=== PATIENT | male | born 1945 | race Caucasian/White ===

== ENCOUNTER 2018-11-18 06:35 | Observation (INO) | payer BC ==
--- NOTE | 2018-11-12 22:17 | HP ---
CC: Dr. 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 Dr. Mullen has had progressive obstructive voiding symptoms with nocturia about 3 times, day frequency about every 2 hours with hesitancy, slow stream intermittency, and feeling of incomplete bladder emptying. He presented to my office about 2-1/2 months ago with a new onset of episodes of urinary incontinence at night. There was no associated hematuria or symptoms of infection. He was evaluated in the office and was found to have a large postvoid residual of about 500 cc. His rectal examination at that time showed an enlarged, but non-suspicious prostate and his PSA was moderately elevated at 5.2. He had a straight catheterization done and he had a residual of 800 cc. Patient was given the options of Clifford catheter drainage or going on intermittent self- catheterization. He chose the option of self- catheterization and he was started on tamsulosin and on finasteride. He has been performing self-cath about 4 times a day and typically gets between 300 and 400 cc residual. He has not been able to void spontaneously. He had a cystoscopy, which showed a large obstructing prostate. Urodynamic studies showed a high voiding detrusor pressure in excess of 100 cm of water, making him a very good candidate for TURP. With the persistent retention and the failure of medical treatment, the patient is admitted for transurethral resection of the prostate. PAST MEDICAL HISTORY AND SYSTEM REVIEW: He has had an inferior NC in 2004 and had a stent placement. He is followed by Dr. Stevenson. I am including the preoperative cardiology consultation and medical clearance note by Dr. Stevenson dated 11/08/18. At this evaluation, the patient had an echocardiogram and a stress nuclear test and they were both normal showing good cardiac function. He has bradycardia, asymptomatic. Dr. Stevenson cleared him up for the TURP, but did not want him to stop the Baby Aspirin.. MEDICATIONS: The patient is maintained on: 1. Lipitor 40 mg daily. 2. Amlodipine 5 mg daily. 3. Diazepam 10 mg twice a day as needed for anxiety. 4. Altace 10 mg twice a day. 5. Toprol XL 200 mg daily. 6. One baby aspirin per day. ALLERGIES: The patient denies any allergies to medications. FAMILY HISTORY: Negative family history for prostate carcinoma. SOCIAL HISTORY: He is a nonsmoker. no drug use. PHYSICAL EXAMINATION GENERAL: Moderately overweight; otherwise, pleasant and healthy-looking white male. VITAL SIGNS: Blood pressure 130/80, pulse of 50. LUNGS: Clear. HEART: Regular and rhythmic. No murmurs. ABDOMEN: Soft. No masses, no tenderness, and no CVA tenderness. EXTERNAL GENITALIA: Normal. RECTAL: Exam shows a large, but non-suspicious prostate. IMPRESSION: Urinary retention with failure of medical treatment, on intermittent self-catheterization. Coronary artery disease, stable with good cardiac function and bradycardia, with cardiac clearance for the above procedure. PLAN: Is for transurethral resection of the prostate. I discussed the operation in detail with the patient and some of the potential complications including infection, hematuria, small incidence of urinary incontinence. Considering the large prostate size, it is possible that the patient might require a staged TURP if the complete resection cannot be performed in one setting. All his questions were answered. [id number]/[facility] #: [id number] ALDO
[~2018-11-18 06:35] MED LIST: Buffered Lidocaine 1% SYRIN* 1 ML/SYRINGE INTRADERM ONE; Dexamethasone TAB* 4 MG PO ONE; DiMENhydriNATE IV* 50 MG/ML VIAL IV PUSH PRN; Famotidine IV* 10 MG/ML 2 ML (20 mg) IV ONE; Lactated Ringers 1000 ML Bag* 1,000 ML IV SCH; Morphine 4 MG/ML VIAL (1 ml) 4 MG/ML VIAL IV PRN; Naloxone* 0.4 MG/ML 1 ML VIAL IV PRN; Ondansetron INJ* 2 MG/ML VIAL ONE; Ondansetron ODT TAB* 4 MG PO ONE; PROCHLORPERAZINE INJ 5 MG/ML 2 ML VIAL IV PRN; fentaNYL* 50 MCG/ML 2 ML VIAL (100 MCG VIAL) IV PRN; oxyCODONE/Acetamin 5/325 MG* TAB PO PRN
[2018-11-18] MEDS ORDERED: Ondansetron ODT TAB* 4 MG ONE (07:02)
[2018-11-18] MEDS ORDERED: Famotidine IV* 10 MG/ML 2 ML (20 mg) ONE (07:02)
[2018-11-18] MEDS ORDERED: cefTRIAXone(*) 2 GM ADDV.VIAL IVPB ONE (07:02)
[2018-11-18] MEDS ORDERED: Dexamethasone TAB* 4 MG ONE (07:02)
[2018-11-18] MEDS ORDERED: KETAMINE HCL* 50 MG/ML 10 ML VIAL ONE (08:28)
[2018-11-18] MEDS ORDERED: fentaNYL* 50 MCG/ML 2 ML VIAL (100 MCG VIAL) ONE (08:28)
[2018-11-18] MEDS ORDERED: Midazolam* 1 MG/ML 5 ML VIAL (5 MG) ONE (08:28)
[2018-11-18] MEDS ORDERED: Midazolam* 1 MG/ML 2 ML VIAL (2 MG) ONE (10:12)
[2018-11-18] MEDS ORDERED: Lidocaine 2% PF * 5 ML VIAL ONE (11:14)
[2018-11-18] MEDS ORDERED: Propofol* 500 MG/50 ML BTL ONE (11:14)
[2018-11-18] MEDS ORDERED: Zolpidem TAB* 5 MG PO PRN (12:38)
[2018-11-18] MEDS ORDERED: Diazepam TAB(*) 5 MG PO PRN (12:41)
[2018-11-18] MEDS: Lactated Ringers 1000 ML Bag* 1,000 ML IV SCH ×2 (13:02→19:16)
[2018-11-18] MEDS: Lidocaine 2% JELLY* 6 ML JELLY TOPICAL PRN ×2 (15:00→19:15)
[2018-11-18] MEDS: Oxybutynin TAB* 5 MG PO PRN ×2 (15:01→21:04)
[2018-11-18] MEDS: oxyCODONE/Acetamin 5/325 MG* TAB PO PRN ×2 (16:02→20:00)
[2018-11-18] MEDS: TACROLIMUS 0.1% TOPICAL SCH (19:15)
[2018-11-18] MEDS: Ramipril CAP* 10 MG PO SCH (20:01)
[2018-11-18] MEDS ORDERED: Metoprolol Succinate XL TAB* 100 MG PO SCH (21:00)
[2018-11-18] MEDS ORDERED: Tamsulosin CAP* 0.4 MG PO SCH (21:00)
[2018-11-18] MEDS ORDERED: amLODIPine TAB* 5 MG PO SCH (21:00)
[2018-11-18] MEDS ORDERED: Atorvastatin* 40 MG TAB PO SCH (21:00)
[2018-11-19] MEDS: oxyCODONE/Acetamin 5/325 MG* TAB PO PRN ×2 (00:36→04:16)
[2018-11-19] MEDS: Lactated Ringers 1000 ML Bag* 1,000 ML IV SCH (01:51)
--- NOTE | 2018-11-19 02:55 | OP ---
CC: Dr. Chen * DATE OF OPERATION: 11/18/18 - ROOM #334 DATE OF : 41 SURGEON: Massimo Hargrove MD ANESTHESIOLOGIST: Dr. Giovani Rios. ANESTHESIA: Spinal. PRE-OP DIAGNOSES: 1. Urinary retention. 2. Benign prostatic hyperplasia. POST-OP DIAGNOSES: 1. Urinary retention. 2. Benign prostatic hyperplasia. OPERATIVE PROCEDURE: 1. Cystoscopy. 2. Transurethral resection of the prostate. 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 Rectal exam showed a large prostate. He was started on intermittent self-catheterization and was placed on tamsulosin and on finasteride. Cystoscopy showed a large obstructing prostate with heavy bladder trabeculations. Urodynamic studies showed high voiding detrusor pressure making him a very good candidate for TURP. Because of the persistent retention and the failure of medical treatment, TURP was advised and accepted. 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 The prostatic urethra measured 3.5 cm in length and there was significant degree of obstruction by trilobar hyperplasia of the prostate. Examination of the bladder showed diffuse and heavy bladder trabeculations. There were small cellules but no diverticula. The ureteral orifices looked normal. No calculi and no suspicious lesions were seen. The prostate adenoma was moderately vascular. DESCRIPTION OF PROCEDURE: After successful spinal anesthesia, the patient was placed in the lithotomy position and was prepped and draped for a cystoscopy. Cystoscopy was performed. The findings in the prostatic urethra and in the bladder were noted. The resectoscope was then introduced inside the bladder. Mannitol sorbitol solution was used for irrigation and the inflow and outflow were adjusted to avoid overdistention of the bladder. The median lobe and the protruding portions of the lateral lobes were resected until the identification of the bladder neck muscle fibers. The median lobe was then resected allowing the visualization of the bladder neck. The resectoscope was then positioned in the mid prostatic urethra and that the adenomatous obstructing tissue was resected circumferentially. The resectoscope was then positioned at the level of the veru. The left lobe was then resected started at 5 o'clock and proceeding anteriorly. The right lobe was resected next. The anterior and the apical tissues were resected last. The limits of the resection were the bladder neck proximally, the veru distally and the capsule circumferentially. The bleeders were electrocoagulated and controlled. At the completion of the resection, the prostatic urethra was wide open. There were no deep cuts into the capsule and no open sinuses. The external sphincter, the veru, the capsule, the bladder neck and the ureteral orifices and the bladder wall were all intact. After evacuating all the prostate chips and making sure there was very good hemostasis, the resectoscope was removed and a size 22-Upper Sorbian Clifford catheter was passed inside the bladder and the balloon inflated with 40 cc of water. Catheter was placed under gentle traction and taped to the right side of the patient. Irrigations yielded clear returns. The patient tolerated the procedure well and left the operating room in good condition. The blood loss was estimated at less than 75 cc. The specimen was prostate chips. The inflow and outflow irrigation were all accounted for indicating no absorption. [id number]/[facility] #: [id number] ALDO
[2018-11-19] MEDS: Oxybutynin TAB* 5 MG PO PRN ×2 (03:31→09:32)
[2018-11-19] MEDS ORDERED: cefTRIAXone(*) 1 GM in NS 0.9% 50 ML* 50 ML IVPB ONE (06:30)
[2018-11-19] MEDS ORDERED: Finasteride TAB* 5 MG PO SCH (09:00)
[2018-11-19 09:11] VITALS: BP 145/74
[2018-11-19] MEDS: Ramipril CAP* 10 MG PO SCH (09:32)
[2018-11-19] MEDS: TACROLIMUS 0.1% TOPICAL SCH (09:33)
--- NOTE | 2018-11-19 12:35 | DS ---
CC: Dr. Chen * DISCHARGE SUMMARY: DATE OF ADMISSION: 11/18/18 DATE OF DISCHARGE: 11/19/18 FINAL DIAGNOSES: 1. Urinary retention. 2. Benign prostatic hyperplasia. 3. History of coronary artery disease. OPERATION: Transurethral resection of the prostate on 11/18/18. 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 He was found to have a large postvoid residual of about 700 cc. There was no associated hydronephrosis or decreased renal function. He was placed on intermittent self-catheterizations and was started on tamsulosin and on finasteride. He continued to have the retention requiring self- catheterization 3 to 4 times per day. Cystoscopy showed a large obstructing prostate and heavy bladder trabeculations. Urodynamic studies showed high voiding detrusor pressure, indicating good detrusor function and indicating he is a good candidate for transurethral resection of the prostate. The patient's PSA at his initial presentation was about 5. Because of the above history and the failure of medical treatment, he was admitted for transurethral resection of the prostate. PAST MEDICAL HISTORY AND SYSTEM REVIEW: He had an inferior DC in 2004, had a stent placement. He has done very well and had full pre op evaluation with an echocardiogram and a stress nuclear test, and they were normal showing good cardiac function. He was cleared for the surgery by his real estate transaction coordinator, Dr. Stevenson. MEDICATIONS: The patient is maintained on: 1. Lipitor 40 mg daily. 2. Amlodipine 5 mg daily. 3. Diazepam 10 mg twice a day as needed for anxiety. 4. Altace 10 mg twice a day. 5. Toprol-XL 200 mg daily. 6. Baby aspirin daily. 7. Tamsulosin 0.4 mg daily. 8. Finasteride 5 mg daily. SOCIAL HISTORY: The patient is a nonsmoker. LABORATORY DATA: Preoperative lab work was all within normal. PHYSICAL EXAMINATION: Preoperative physical exam was also normal. Rectal exam showed a large, but benign feeling prostate. COURSE IN HOSPITAL: The patient was admitted the morning of his surgery. He underwent an uncomplicated transurethral resection of the prostate under spinal anesthesia. He was kept overnight for observation. He had very smooth postoperative course and his urine was clear postoperatively. The patient is being discharged home in good condition, on all his preoperative medications with the exception of tamsulosin. I will see him in my office 1 week postoperatively for Clifford catheter removal. Instructions were given for followup care. Pathology showed the resected prostate tissue measured 30 cc, and was all benign. [id number]/[facility] #: [id number] ALDO
== END 2018-11-19 10:37 | disposition home or self-care (01) ==
LOC: OR 06:35 → INTOOBSV 12:09 → SSU 12:09
PROVIDERS: ADMIT Urology; ATTEND Urology
DX: N40.1 Benign prostatic hyperplasia with lower urinary tract symptoms (principal); I77.810 Thoracic aortic ectasia; I25.10 Atherosclerotic heart disease of native coronary artery without angina pectoris; I25.2 Old myocardial infarction; Z95.5 Presence of coronary angioplasty implant and graft; L20.9 Atopic dermatitis, unspecified; F41.1 Generalized anxiety disorder; R73.01 Impaired fasting glucose; G47.00 Insomnia, unspecified; E78.5 Hyperlipidemia, unspecified; I10 Essential (primary) hypertension
CPT/HCPCS: 88305; 96374; 96375; 96376; A9270-GY; G0378; J0696; J2250; J2704; J3010; J8540